=== PATIENT | female | born 1970 | race African-American/Black ===

== ENCOUNTER 2018-09-01 14:52 | Inpatient (IN) | payer OTHER ==
[2018-09-01 16:40] VITALS: BMI 21.6
--- NOTE | 2018-09-01 17:50 | HP ---
COWS - Scale Resting Pulse: 1= AR 81-100 Sweatin= Chills/Flushing Restless Observation: 3= Extraneous Movement Pupil Size: 0= Normal to Room Light Bone or Joint Aches: 2= Severe Diffuse Aches Runny Nose/ Eye Tearin= Runny Nose/Eyes GI Upset > 30mins: 2= Nausea/Diarrhea Tremor Observation: 0= None Yawning Observation: 0= None Anxiety or Irritability: 2=Irritable/Anxious Goose Flesh Skin: 0=Smooth Skin COWS Score: 13 CIWA Score Nausea/Vomitin-Mild Nausea/No Vomiting Muscle Tremors: 1-None Visible, but [place] Anxiety: 4-Mod. Anxious/Guarded Agitation: 1-Slight > Activity Paroxysmal Sweats: 1-Minimal Palms Moist Orientation: 0-Oriented Tacttile Disturbances: 0-None Auditory Disturbances: 0-None Visual Disturbances: 0-None Headache: 0-None Present CIWA-Ar Total Score: 8 - Admission Criteria OASAS Guidelines: Admission for Medically Managed Detox: Requires at least one of the followin. CIWA greater than 12 2. Seizures within the past 24 hours 3. Delirium tremens within the past 24 hours 4. Hallucinations within the past 24 hours 5. Acute intervention needed for co occurring medical disorder 6. Acute intervention needed for co occurring psychiatric disorder 7. Severe withdrawal that cannot be handled at a lower level of care (continued vomiting, continued diarrhea, abnormal vital signs) requiring intravenous medication and/or fluids 8. Admission ROS [facility] Allergies/Adverse Reactions: Allergies Allergy/AdvReac Type Severity Reaction Status Date / Time No Known Allergies Allergy Verified 09/01/18 16:41 History of Present Illness: patient here requesting detox from etoh and opiate use , etoh since over 1 year 1/2 pint daily , reports tremors if not drinking , starts to drink in the mornings upon awakening , denies seizures, + blackouts , + falls while intoxicated , hit head 3 weeks ago , went to the [facility] , no frx , latest use yesterday morning . heroin use : 8 bags via inhalation , denies ivdu , opiate use since age 14 , was sober with assisted program x 5 years, most recently 2 years, relapsed > 1 years ago , latest use yesterday afternoon around 1 p.m. , current symptoms as above . Denies participation in outpt program . cocaine use : 20 $ / day minimum , latest use yesterday tobacco - 1 ppd , requesting nrt w/ patch . PMHX : chronic leg pain , asthma ( since 2 years ago , latest useof ALbuterol yesterday , [place]/ [place] ) PSHx : earlobe left ( cosmetic ) psych : anxiety , depression, ADHD , PTSD , SAD since age 5, in the past was taking Seroquel , Depakote , has not been taking meds > 2 years . Had suicide attempts in the past by OD on pills " when I was younger" denies current SI / HI . lives in senior care " [facility] " LMP 2 years ago Exam Limitations: No Limitations - Ebola screening Have you traveled outside of the country in the last 21 days: No Have you had contact with anyone from an Ebola affected area: No Have you been sick,other than usual withdrawal symptoms: No Do you have a fever: No - Review of Systems Constitutional: See HPI EENT: reports: See HPI, Other (voice hoarseness > 1 month , agreeable to followup with PCP and get referral for ENT .) Respiratory: reports: Shortness of Breath (h/o asthma) Cardiac: reports: No Symptoms Reported GI: reports: Nausea : reports: No Symptoms Reported Musculoskeletal: reports: Back Pain, Joint Pain, Muscle Pain Integumentary: reports: No Symptoms Reported Neuro: reports: No Symptoms reported Psychiatric: reports: Orientated x3, Anxious Patient History - Patient Medical History Hx Asthma: Yes (Pt is on MDI.) Hx Chronic Obstructive Pulmonary Disease (COPD): No Hx Cardiac Disorders: No Hx Hypertension: No Hx Seizures: Yes (Pt states she had a seizure 30 yrs ago.) Hx Diabetes: No Hx Gastrointestinal Disorders: No Hx Genitourinary Disorders: No Hx Sexually Transmitted Disorders: No Hx Renal Disease (ESRD): No Hx Depression: Yes Hx Suicide Attempt: Yes (Tried to overdose at age 12 yrs old.) Hx Schizophrenia: No - Patient Surgical History Past Surgical History: No Hx Neurologic Surgery: No Hx Cataract Extraction: No Hx Cardiac Surgery: No Hx Lung Surgery: No Hx Breast Surgery: No Hx Breast Biopsy: No Hx Abdominal Surgery: No Hx Appendectomy: No Hx Cholecystectomy: No Hx Genitourinary Surgery: No Hx Section: No Hx Orthopedic Surgery: No Anesthesia Reaction: No - PPD History Previous Implant?: Yes Documented Results: Negative w/o proof Implanted On Prior [facility] Admission?: No - Reproductive History Patient : No - Smoking Cessation Smoking history: Current every day smoker Have you smoked in the past 12 months: Yes Aproximately how many cigarettes per day: 20 Hx Chewing Tobacco Use: No Initiated information on smoking cessation: No - Substances Abused Heroin Route: Inhalation Frequency: Daily Amount used: 7-8 bags Age of first use: 14 Date of Last Use: 08/31/18 Alcohol Route: Oral Frequency: Daily Amount used: 3 pints vodka Age of first use: 10 Date of Last Use: 08/31/18 Cocaine Route: Inhalation Frequency: Daily Amount used: $120 and up Age of first use: 15 Date of Last Use: 08/31/18 Marijuana/Hashish Route: Smoking Frequency: 3-6 times per week Amount used: 1-2 puffs Age of first use: 10 Date of Last Use: 08/30/18 Family Disease History - Family Disease History Family Disease History: Other: Grandparent (aunt breast CA , aunt brain aneurysm), Mother (d.41 traumatic ICH ) Admission Physical Exam [facility] - Vital Signs Vital Signs: Vital Signs - 24 hr 09/01/18 16:38 Temperature 98.2 F Pulse Rate 92 H Respiratory 20 Rate Blood Pressure 113/70 - Physical General Appearance: Yes: Mild Distress HEENTM: Yes: Pharynx Normal, Rhinorrhea, Muffled/Hoarse Voice Respiratory: Yes: Chest Non-Tender, Lungs Clear Neck: Yes: No masses,lesions,Nodules, Trachea in good position Cardiology: Yes: Regular Rhythm, Regular Rate, Tachycardia Abdominal: Yes: Normal Bowel Sounds, Soft Genitourinary: Yes: Within Normal Limits Back: Yes: Normal Inspection Musculoskeletal: Yes: Joint Stiffness Extremities: Yes: Normal Capillary Refill, Normal Range of Motion Neurological: Yes: Motor Strength 5/5, Normal Mood/Affect Integumentary: Yes: Normal Color, Dry, Warm - Diagnostic (1) Opioid withdrawal Current Visit: Yes Status: Acute (2) Alcohol dependence Current Visit: Yes Status: Acute Qualifiers: Substance use status: uncomplicated Qualified Code(s): F10.20 - Alcohol dependence, uncomplicated (3) Cocaine dependence Current Visit: Yes Status: Chronic Qualifiers: Substance use status: uncomplicated Qualified Code(s): F14.20 - Cocaine dependence, uncomplicated (4) Nicotine dependence Current Visit: Yes Status: Chronic Qualifiers: Nicotine product type: cigarettes (5) Asthma Current Visit: Yes Status: Chronic Qualifiers: Asthma severity: unspecified severity BHS Breath Alcohol Content Breath Alcohol Content: 0 Urine Pregancy Test - Result Urine Test Results: Negative- NO Line Present Urine Drug Screen - Results Drug Screen Negative: No Urine Drug Screen Results: THC-Marijuana, GINNY-Cocaine, OPI-Opiates
[2018-09-01] MEDS ORDERED: P-EPHED 60MG/TRIPROLIDI 2.5MG TABLET PO PRN (17:58)
[2018-09-01] MEDS ORDERED: MAG HYDROX/AL HYDROX/SIMETH 30 ML UNIT-DOSE CUP PO PRN (17:58)
[2018-09-01] MEDS ORDERED: ACETAMINOPHEN 325 MG TABLET (FP) PO PRN (17:58)
[2018-09-01] MEDS ORDERED: IBUPROFEN 400 MG TABLET (FP) PO PRN (17:58)
[2018-09-01] MEDS ORDERED: MAGNESIUM HYDROX 2400MG/30ML ORAL SUSPENSION 30 ML CUP PO PRN (17:58)
[2018-09-01] MEDS ORDERED: guaiFENesin/D-METHORPHAN HB 10 ML UNIT-DOSE CUPS PO PRN (17:58)
[2018-09-01] MEDS ORDERED: MENTHOL/PHENOL 1 EACH UD MM PRN (17:58)
[2018-09-01] MEDS ORDERED: NICOTINE POLACRILEX 2 MG GUM BC PRN (17:58)
[2018-09-01] MEDS ORDERED: MAGNESIUM CITRATE 300 ML BOTTLE PO PRN (17:58)
[2018-09-01] MEDS ORDERED: ALBUTEROL SO4 8 GM HFA INHALER IH PRN (18:00)
[2018-09-01] MEDS ORDERED: ALBUTEROL SO4 0.083% IH SOL 2.5 MG/3 ML VIAL.NEB. NEB PRN (18:01)
[2018-09-01] MEDS ORDERED: diazePAM 5 MG TABLET PO ONE (18:30)
[2018-09-01] MEDS ORDERED: MELATONIN 5 MG TABLETS PO PRN (22:00)
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
[2018-09-01] MEDS ORDERED: METHADONE HCL 10 MG TABLET (FOR DETOX USE ONLY) PO ONE (23:00)
[2018-09-01 23:04] LABS: URINE APPEARANCE CLEAR; URINE BILIRUBIN NEGATIVE (<2.0 mg/dL); URINE COLOR YELLOW; URINE GLUCOSE (UA) 2+ (NEGATIVE); URINE KETONE NEGATIVE (NEGATIVE); URINE LEUK ESTERASE NEGATIVE (NEGATIVE); URINE NITRITE NEGATIVE (NEGATIVE); URINE PROTEIN NEGATIVE (NEGATIVE); URINE UROBILINOGEN 4.0 E.U/dl mg/dL (0.2-1.0)
[2018-09-01] MEDS: THIAMINE HCL 100 MG TABLET (FP) PO SCH (23:10)
[2018-09-01] MEDS: diazePAM 5 MG TABLET PO SCH (23:11)
[2018-09-02] MEDS: diazePAM 5 MG TABLET PO PRN ×2 (03:22→10:44)
[2018-09-02] MEDS: diazePAM 5 MG TABLET PO SCH ×3 (07:06→23:02)
[2018-09-02] MEDS ORDERED: METHADONE HCL 10 MG TABLET (FOR DETOX USE ONLY) PO SCH (10:00)
[2018-09-02] MEDS ORDERED: NICOTINE 7 MG/24 HOURS TOPICAL PATCH TD SCH (10:00)
[2018-09-02] MEDS ORDERED: PRENATAL VITAMINS W/ FOLIC ACID TABLET (FP) PO SCH (10:00)
[2018-09-02 12:05] LABS: ALK PHOS 106 U/L (45-117); ANION GAP 5 MMOL/L (8-16); BILIRUBIN,TOTAL 0.2 mg/dL (0.2-1); BLOOD UREA NITROGEN 17 mg/dL (7-18); CALCIUM 8.9 mg/dL (8.5-10.1); CHLORIDE 108 mmol/L (98-107); CO2 28 mmol/L (21-32); CREATININE 0.8 mg/dL (0.55-1.3); GLUCOSE,RANDOM 86 mg/dL (74-106); POTASSIUM 4.4 mmol/L (3.5-5.1); SGOT/AST 18 U/L (15-37); SGPT/ALT 25 U/L (13-61); SODIUM 141 mmol/L (136-145); TOT PROT 6.3 g/dl (6.4-8.2)
[2018-09-02 12:08] LABS: HEMATOCRIT 40.7 % (32.4-45.2); HEMOGLOBIN 13.2 GM/dL (10.7-15.3); MCH 29.9 pg (25.7-33.7); MCHC 32.4 g/dl (32.0-36.0); MEAN CELL VOLUME 92.4 fl (80-96); MEAN PLT VOLUME 9.8 fl (7.5-11.1); PLATELET COUNT 167 K/MM3 (134-434); RDW 13.5 % (11.6-15.6); WHITE BLOOD COUNT 7.5 K/mm3 (4.0-10.0)
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
--- NOTE | 2018-09-02 13:11 | PN ---
[facility] Progress Note Note: pt was found crying hysterically, stating that she wanted to hurt herself. Conversation was scattered non reasoning. Dr. Chand was asked to see pt.
[2018-09-02 13:40] VITALS: TEMP 97.7
--- NOTE | 2018-09-02 13:40 | PN ---
[facility] Progress Note Note: pt is medically stable however psychiatrically unstable and will be sent to [facility] for evaluation. This was ordered by staff psychiatrist.
[2018-09-02 13:49] VITALS: BP 116/69; PULSE 61
[2018-09-02] MEDS: THIAMINE HCL 100 MG TABLET (FP) PO SCH (23:02)
[2018-09-03] MEDS ORDERED: diazePAM 5 MG TABLET PO SCH (10:00)
[2018-09-03] MEDS ORDERED: METHADONE HCL 5 MG TABLET (FOR DETOX USE ONLY) PO SCH (10:00)
[2018-09-04] MEDS ORDERED: METHADONE HCL 10 MG TABLET (FOR DETOX USE ONLY) PO SCH (10:00)
[2018-09-05] MEDS ORDERED: METHADONE HCL 5 MG TABLET (FOR DETOX USE ONLY) PO SCH (06:00)
[2018-09-05] MEDS ORDERED: diazePAM 5 MG TABLET PO SCH (10:00)
--- NOTE | 2018-09-21 11:23 | DS ---
[facility] Detox Discharge Summary Admission Date: 09/01/18 - Physical Exam Results Vital Signs: Vital Signs Temperature 97.7 F 09/02/18 13:10 Pulse Rate 61 09/02/18 13:10 Respiratory Rate 18 09/02/18 13:10 Blood Pressure 116/69 09/02/18 13:10 O2 Sat by Pulse Oximetry (%) - Medication Discharge Medications: Ambulatory Orders Albuterol Sulfate Inhaler - [Ventolin Hfa Inhaler -] 2 inh PO Q4H PRN 09/01/18 - Diagnosis (1) Opioid withdrawal Status: Acute (2) Alcohol dependence Status: Acute Qualifiers: Substance use status: uncomplicated Qualified Code(s): F10.20 - Alcohol dependence, uncomplicated (3) Cocaine dependence Status: Acute Qualifiers: Substance use status: uncomplicated Qualified Code(s): F14.20 - Cocaine dependence, uncomplicated (4) Nicotine dependence Status: Acute Qualifiers: Nicotine product type: cigarettes (5) Asthma Status: Chronic Qualifiers: Asthma severity: unspecified severity
== END 2018-09-02 23:21 | disposition short-term general hospital (02) | DRG 773 ==
LOC: YASAS 14:52 → Y6N 18:06
PROVIDERS: ADMIT Neuromusculoskeletal Medicine & OMM; ATTEND Neuromusculoskeletal Medicine & OMM
PROC: HZ2ZZZZ Detoxification Services for Substance Abuse Treatment (ICD-10-PCS; principal; 2018-09-01)
DX: F11.20 Opioid dependence, uncomplicated (principal); F14.20 Cocaine dependence, uncomplicated; F12.10 Cannabis abuse, uncomplicated; F17.213 Nicotine dependence, cigarettes, with withdrawal; F25.0 Schizoaffective disorder, bipolar type; F43.10 Post-traumatic stress disorder, unspecified; G47.00 Insomnia, unspecified; R45.851 Suicidal ideations; M54.5 Low back pain; G89.29 Other chronic pain; S09.8XXA Other specified injuries of head, initial encounter; Y04.2XXA Assault by strike against or bumped into by another person, initial encounter; Y93.89 Activity, other specified; Y92.238 Other place in hospital as the place of occurrence of the external cause; Y99.8 Other external cause status; Z91.5 Personal history of self-harm; Z91.19 Patient's noncompliance with other medical treatment and regimen
CPT/HCPCS: 36415; 80053; 81003; 85027; 86593; 87389; 99281-25

== ENCOUNTER 2018-09-01 22:52 | Emergency (ER) | payer OTHER ==
[2018-09-01 23:03] VITALS: BP 106/56; PULSE 83; TEMP 98.6; BMI 25.7
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
== END 2018-09-02 02:41 | disposition home or self-care (01) ==
LOC: JER 22:52
DX: S09.8XXA Other specified injuries of head, initial encounter (principal); Y04.2XXA Assault by strike against or bumped into by another person, initial encounter; Y93.89 Activity, other specified; Y92.238 Other place in hospital as the place of occurrence of the external cause; Y99.8 Other external cause status; J45.909 Unspecified asthma, uncomplicated; F11.10 Opioid abuse, uncomplicated; F10.10 Alcohol abuse, uncomplicated; F41.8 Other specified anxiety disorders; F32.9 Major depressive disorder, single episode, unspecified; F90.9 Attention-deficit hyperactivity disorder, unspecified type; F43.10 Post-traumatic stress disorder, unspecified
CPT/HCPCS: 99281-25